=== PATIENT | female | born 1995 | race Caucasian/White ===

== ENCOUNTER 2016-12-01 08:12 | Emergency (ER) | payer SELFPAY ==
[2016-12-01 08:17] VITALS: BP 114/75; PULSE 62; RESP 14; TEMP 97.5; O2SAT 99
[2016-12-01] MEDS ORDERED: PROPARACAINE 0.5% 15 ML OPHT DROP ONE (08:21)
[2016-12-01] MEDS ORDERED: FLUORESCEIN SODIUM 1 MG STRIP OP ONE (08:36)
--- NOTE | 2016-12-01 08:47 | EDPHY ---
H & P Stated Complaint: eyes burning (no sunglasses yesterday) Time Seen by Provider: 12/01/16 08:33 HPI/ROS: CHIEF COMPLAINT: Bilateral eye irritation HISTORY OF PRESENT ILLNESS: The patient presents to the ED with complaints of bilateral eye irritation. The patient reportedly was snowboarding yesterday without goggles. She does not were contact lenses. She denies any history of ocular trauma. The patient has been taken ibuprofen without significant improvement. She complains of 10/10 pain. She denies additional complaints. REVIEW OF SYSTEMS: A comprehensive 10 point review of systems is otherwise negative aside from elements mentioned in the history of present illness. Source: Patient Exam Limitations: No limitations - Personal History LMP (Females 10-55): 15-21 Days Ago Current Tetanus/Diphtheria Vaccine: Yes Current Tetanus Diphtheria and Acellular Pertussis (TDAP): Yes - Medical/Surgical History Hx Asthma: No Hx Chronic Respiratory Disease: No Hx Diabetes: No Hx Cardiac Disease: No Hx Renal Disease: No Hx Cirrhosis: No Hx Alcoholism: No Hx HIV/AIDS: No Hx Splenectomy or Spleen Trauma: No - Social History Smoking Status: Current every day smoker - Physical Exam Exam: Visual Acuity: noted from Nurse's notes. Pupils: equal round and reactive to light EOMI Skin: no proptosis, no periorbital erythema or swelling, no vesicles Conjunctivae: not injected, no discharge Cornea: exam with fluorescein shows no evidence of a corneal abrasion, mild keratoconjunctivitis sicca noted Anterior chamber: normal, no hyphema or hypopyon Constitutional: Initial Vital Signs Temperature (C) 36.4 C 12/01/16 08:15 Heart Rate 62 12/01/16 08:15 Respiratory Rate 14 12/01/16 08:15 Blood Pressure 114/75 12/01/16 08:15 O2 Sat (%) 99 12/01/16 08:15 O2 Delivery Mode Room Air Allergies/Adverse Reactions: Penicillins Allergy (Verified 12/01/16 08:17) Medical Decision Making ED Course/Re-evaluation: The patient presents to the ED with solar keratitis. She did receive complete relief of pain with a topical Ophthetic. I have prepared a dilute proparacaine solution 0.05% and informed the patient that she can use 1 drop in each eye q.1 hour for the next 24 hours only. The patient has been instructed not to use the topical Ophthetic beyond 24 hours. She is sting to be a reliable patient. She is given the contact number of our on-call seasoning sprayer. She will continue NSAIDs. She is also instructed to use Lacri-Lube ointment at night. The patient will be referred to our on-call seasoning sprayer Dr. Dennis Brand. Differential Diagnosis: Differential diagnosis considered includes corneal abrasion, corneal ulcer, solar keratitis Departure - Departure Disposition: Home, Routine, Self-Care Clinical Impression: Ultraviolet keratitis of both eyes Condition: Good Instructions: Keratitis (ED) Additional Instructions: 1. You may use eyedrops provided in the ED today 1 drop every hour for the next 24 hours. Please do not use the eyedrops beyond 24 hours as this can result in worsening symptoms and possibly corneal damage. 2. Ibuprofen as needed for pain. 3. Please use Lacri-Lube ointment, which is available [id number], at night for the next 2-3 nights 4. Return to the ED for markedly worsening pain. Please follow up with the seasoning sprayer you have been referred to for any worsening symptoms. Referrals: Dennis Brand MD [Medical Doctor] - As per Instructions
[2016-12-01] MEDS ORDERED: PROPARACAINE 0.5% 15 ML OPHT DROP OP ONE (08:51)
== END 2016-12-01 08:54 | disposition home or self-care (01) ==
DX: H16.9 Unspecified keratitis (principal); F17.200 Nicotine dependence, unspecified, uncomplicated